=== PATIENT | female | born 1970 | race Caucasian/White ===

== ENCOUNTER 2017-02-03 18:39 | Emergency (ER) | payer BC, OTHER ==
[2017-02-03 18:50] VITALS: BP 117/57; PULSE 103; RESP 20; TEMP 97.8
--- NOTE | 2017-02-03 18:57 | ED ---
Upper Extremity HPI - General Chief Complaint: Extremity Injury, Upper Stated Complaint: RT ELBOW PAIN Time Seen by Provider: 02/03/17 18:50 Source: patient, RN notes reviewed Mode of arrival: ambulatory Limitations: no limitations - History of Present Illness Initial Comments: 46-year-old female presents emergency from she complaint right elbow pain. Patient states has been bothering for last week. 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 Patient states that she was grilling today and states that she knows increase in pain with movement. Patient denies any falls no trauma. Patient denies any paresthesias. Patient's had no prior injuries no fever no chills no redness. - Related Data Home Medications Medication Instructions Recorded Confirmed Insuln Asp Prt/Insulin Aspart 40 unit SQ AC-BID 12/11/14 03/17/16 [NovoLOG MIX 70-30 VIAL] Previous Rx's Medication Instructions Recorded Cyclobenzaprine [Flexeril] 10 mg PO TID PRN #12 tablet 03/17/16 Acetaminophen-Codeine 300-30mg 1 tab PO Q4H PRN #20 tablet 02/03/17 [Tylenol #3] methylPREDNISolone [Medrol Dose 4 mg PO DIRECTED #1 pack 02/03/17 Pack] Allergies Allergy/AdvReac Type Severity Reaction Status Date / Time Sulfa (Sulfonamide AdvReac Anaphylaxis Verified 02/03/17 18:50 Antibiotics) Review of Systems ROS Statement: Those systems with pertinent positive or pertinent negative responses have been documented in the HPI. ROS Other: All systems not noted in ROS Statement are negative. Past Medical History Past Medical History: Diabetes Mellitus Additional Past Medical History / Comment(s): Glaucoma, cataracts History of Any Multi-Drug Resistant Organisms: None Reported Additional Past Surgical History / Comment(s): nasal reduction, septoplasty, Past Psychological History: No Psychological Hx Reported Smoking Status: Current every day smoker Past Alcohol Use History: Occasional Past Drug Use History: None Reported General Exam Limitations: no limitations General appearance: alert, in no apparent distress Respiratory exam: Present: normal lung sounds bilaterally. Absent: respiratory distress, wheezes, rales, rhonchi, stridor Cardiovascular Exam: Present: regular rate, normal rhythm, normal heart sounds. Absent: systolic murmur, diastolic murmur, rubs, gallop, clicks Extremities exam: Present: other (Right elbow there is mild tenderness there is pain with wrist extension and pronation supination of the right forearm neurovascular intact no erythema no rashes) Course Vital Signs 02/03/17 18:49 Temperature 97.8 F Pulse Rate 103 H Respiratory 20 Rate Blood Pressure 117/57 O2 Sat by Pulse 97 Oximetry Medical Decision Making - Medical Decision Making 46-year-old female presented for right elbow pain. Patient has lateral epicondylitis. 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 Prescriptions: Acetaminophen-Codeine 300-30mg [Tylenol #3] 1 tab PO Q4H PRN #20 tablet PRN Reason: pain methylPREDNISolone [Medrol Dose Pack] 4 mg PO DIRECTED #1 pack Referrals: None,Stated [Primary Care Provider] - 1-2 days Time of Disposition: 18:57
== END 2017-02-03 19:07 | disposition home or self-care (01) ==
LOC: EC 18:39
DX: M77.11 Lateral epicondylitis, right elbow (principal); E11.9 Type 2 diabetes mellitus without complications; F17.200 Nicotine dependence, unspecified, uncomplicated; Z79.4 Long term (current) use of insulin; Z88.2 Allergy status to sulfonamides
CPT/HCPCS: 99283

== ENCOUNTER 2017-04-30 18:00 | Emergency (ER) | payer BC, OTHER ==
[2017-04-30 18:21] VITALS: BP 116/57; PULSE 95; RESP 18; TEMP 97.6
--- NOTE | 2017-04-30 18:54 | ED ---
Lower Extremity Injury HPI - General Chief Complaint: Extremity Injury, Lower Stated Complaint: left ankle injury Time Seen by Provider: 04/30/17 18:50 Source: patient, family, RN notes reviewed Mode of arrival: wheelchair Limitations: no limitations - History of Present Illness Initial Comments: 46-year-old female presents emergency Department chief complaint left ankle injury. Patient states she stepped over a curb and was going down hill when she rolled her ankle. Patient went of left lateral ankle pain. She's had no prior fractures she states she has sprained in the past. She denies any foot pain or any pain proximal to her left ankle. Patient has not taken anything for pain prior arrival she has not placed in a summer at this time. - Related Data Home Medications Medication Instructions Recorded Confirmed Insuln Asp Prt/Insulin Aspart 40 unit SQ AC-BID 12/11/14 03/17/16 [NovoLOG MIX 70-30 VIAL] Previous Rx's Medication Instructions Recorded Cyclobenzaprine [Flexeril] 10 mg PO TID PRN #12 tablet 03/17/16 Acetaminophen-Codeine 300-30mg 1 tab PO Q4H PRN #20 tablet 02/03/17 [Tylenol #3] methylPREDNISolone [Medrol Dose 4 mg PO DIRECTED #1 pack 02/03/17 Pack] Allergies Allergy/AdvReac Type Severity Reaction Status Date / Time Sulfa (Sulfonamide AdvReac Anaphylaxis Verified 04/30/17 18:21 Antibiotics) Review of Systems ROS Statement: Those systems with pertinent positive or pertinent negative responses have been documented in the HPI. ROS Other: All systems not noted in ROS Statement are negative. Past Medical History Past Medical History: Diabetes Mellitus Additional Past Medical History / Comment(s): Glaucoma, cataracts History of Any Multi-Drug Resistant Organisms: None Reported Additional Past Surgical History / Comment(s): nasal reduction, septoplasty, Past Psychological History: No Psychological Hx Reported Smoking Status: Current every day smoker Past Alcohol Use History: Occasional Past Drug Use History: None Reported General Exam Limitations: no limitations General appearance: alert, in no apparent distress Head exam: Present: atraumatic, normocephalic, normal inspection Neck exam: Present: normal inspection. Absent: tenderness, meningismus, lymphadenopathy Respiratory exam: Present: normal lung sounds bilaterally. Absent: respiratory distress, wheezes, rales, rhonchi, stridor Extremities exam: Present: other (left ankle there is moderate swelling to the lateral malleolus with moderate tenderness there is no laxity there is minimal medial malleolus tenderness and no foot tenderness with palpation pedal pulses equal bilaterally neurovascular intact) Skin exam: Present: warm, dry, intact, normal color. Absent: rash Course Vital Signs 04/30/17 18:18 Temperature 97.6 F Pulse Rate 95 Respiratory 18 Rate Blood Pressure 116/57 O2 Sat by Pulse 99 Oximetry Medical Decision Making - Medical Decision Making 46-year-old female presented emergency department for left ankle injury. Patient x-rays reveal no acute fracture. Patient has a left ankle sprain we discussed rest, ice and elevation and follow-up with orthopedics if no improvement. Disposition Clinical Impression: Left ankle sprain Disposition: HOME SELF-CARE Condition: Stable Instructions: Ankle Sprain (ED) Additional Instructions: Please return to the Emergency Department if symptoms worsen or any other concerns. Referrals: None,Stated [Primary Care Provider] - 1-2 days Otf Espinoza DO [Doctor of Osteopathic Medicine] - 1-2 days Time of Disposition: 19:17
--- NOTE | 2017-04-30 19:13 | XR ---
PROCEDURE: XR ankle complete LT - 3 views DATE AND TIME: 04/30/2017 7:02 PM REFERRING PHYSICIAN: Otf Jackson CLINICAL INDICATION: [facility], Pain TECHNIQUE: Department protocol. COMPARISON: None FINDINGS: There is soft tissue swelling laterally, but there is no fracture or malalignment. IMPRESSION: NEGATIVE FOR FRACTURE OR MALALIGNMENT.
== END 2017-04-30 19:25 | disposition home or self-care (01) ==
LOC: EC 18:00
DX: S93.402A Sprain of unspecified ligament of left ankle, initial encounter (principal); E11.9 Type 2 diabetes mellitus without complications; F17.200 Nicotine dependence, unspecified, uncomplicated; Z79.4 Long term (current) use of insulin; X50.9XXA Other and unspecified overexertion or strenuous movements or postures, initial encounter; Y92.828 Other wilderness area as the place of occurrence of the external cause; Y93.89 Activity, other specified
CPT/HCPCS: 99283

== ENCOUNTER 2017-05-16 14:04 | Emergency (ER) | payer OTHER ==
[2017-05-16 14:09] VITALS: BP 121/65; PULSE 84; RESP 18; TEMP 99.6
--- NOTE | 2017-05-16 14:35 | ED ---
Eye Problem HPI - General Chief complaint: Eye Problems Stated complaint: eye pain/swelling Time Seen by Provider: 05/16/17 14:13 Source: patient, RN notes reviewed, old records reviewed Mode of arrival: ambulatory Limitations: no limitations - History of Present Illness Initial comments: This is a 46 year old female with 2 days of left eyelid swelling and irritaiton. Patient reports no pain in the eye, denies any difficulty in vision. Patient has no pain with eyemovements. PAtient denies any fever or chills. She states that her right eye has no irritaiton. Denies any makeup use. - Related Data Home Medications Medication Instructions Recorded Confirmed Fluticasone Nasal [place] [Flonase 2 spr EA NOSTRIL DAILY PRN 05/16/17 05/16/17 Nasal [place]] Medroxyprogesterone Acetate 150 mg IM Q90D 05/16/17 05/16/17 [Depo-Provera] metFORMIN HCL [Glucophage] 500 mg PO BID 05/16/17 05/16/17 Previous Rx's Medication Instructions Recorded Erythromycin Ophth Oint [Romycin 1 applic LEFT EYE QID #1 tube 05/16/17 Ophth Oint] Allergies Allergy/AdvReac Type Severity Reaction Status Date / Time shellfish derived [Shellfish] Allergy Unknown Verified 05/16/17 14:30 venom-honey bee Allergy Unknown Verified 05/16/17 14:30 Sulfa (Sulfonamide AdvReac MARTHA Verified 05/16/17 14:30 Antibiotics) BLANCHE SYNDROME Review of Systems ROS Statement: Those systems with pertinent positive or pertinent negative responses have been documented in the HPI. ROS Other: All systems not noted in ROS Statement are negative. Past Medical History Past Medical History: Diabetes Mellitus Additional Past Medical History / Comment(s): Glaucoma, cataracts History of Any Multi-Drug Resistant Organisms: None Reported Additional Past Surgical History / Comment(s): nasal reduction, septoplasty, Past Psychological History: No Psychological Hx Reported Smoking Status: Current every day smoker Past Alcohol Use History: Occasional Past Drug Use History: None Reported General Exam - General Exam Comments Initial Comments: Well appearing 46 year old female, no distress. Limitations: no limitations General appearance: alert, in no apparent distress Head exam: Present: atraumatic, normocephalic, normal inspection Eye exam: Present: normal appearance, PERRL, EOMI, other (inflammation around left upper eyelash, consistent with blepharitis. ). Absent: scleral icterus, conjunctival injection, periorbital swelling ENT exam: Present: normal exam, mucous membranes moist Neck exam: Present: normal inspection. Absent: tenderness, meningismus, lymphadenopathy Respiratory exam: Present: normal lung sounds bilaterally. Absent: respiratory distress, wheezes, rales, rhonchi, stridor Cardiovascular Exam: Present: regular rate, normal rhythm, normal heart sounds. Absent: systolic murmur, diastolic murmur, rubs, gallop, clicks GI/Abdominal exam: Present: soft, normal bowel sounds. Absent: distended, tenderness, guarding, rebound, rigid Extremities exam: Present: normal inspection, full ROM, normal capillary refill. Absent: tenderness, pedal edema, joint swelling, calf tenderness Back exam: Present: normal inspection Neurological exam: Present: alert, oriented X3, CN II-XII intact Psychiatric exam: Present: normal affect, normal mood Skin exam: Present: warm, dry, intact, normal color. Absent: rash Course Vital Signs 05/16/17 14:06 Temperature 99.6 F Pulse Rate 84 Respiratory 18 Rate Blood Pressure 121/65 O2 Sat by Pulse 99 Oximetry Medical Decision Making - Medical Decision Making 46 year old female with 2 days of left upper eyelid inflammation. Eye has no conjunctivitis or drainage. No pain wiht EOM. Patient has what appears to be blepharitis. PAtient will be started on erythromycin eye ointment, and instructed to use a warm wash cloth to cleanse the eye lid. Discussed follow up with PCP. Discussed to discard all makeup and clean eyeglasses. Disposition Clinical Impression: Blepharitis of left eye Disposition: HOME SELF-CARE Condition: Good Instructions: Blepharitis (ED) Additional Instructions: Patient advised to clean the lid with warm soapy water. Apply warm compresses to the eye frequently. Apply the erythromycin ointment as well. Return to emergency department if any alarming signs or symptoms occur. Prescriptions: Erythromycin Ophth Oint [Romycin Ophth Oint] 1 applic LEFT EYE QID #1 tube Referrals: Keon Gupta MD [Primary Care Provider] - 1-2 days Time of Disposition: 14:34
== END 2017-05-16 14:41 | disposition home or self-care (01) ==
LOC: EC 14:04
DX: H01.004 Unspecified blepharitis left upper eyelid (principal); H40.9 Unspecified glaucoma; H26.9 Unspecified cataract; E11.9 Type 2 diabetes mellitus without complications; F17.200 Nicotine dependence, unspecified, uncomplicated; Z79.3 Long term (current) use of hormonal contraceptives; Z79.84 Long term (current) use of oral hypoglycemic drugs; Z88.2 Allergy status to sulfonamides; Z91.013 Allergy to seafood; Z91.030 Bee allergy status
CPT/HCPCS: 99283

== ENCOUNTER → 2018-02-04 | Outpatient (CLI) | payer BC ==
[2018-02-04 10:28] VITALS: BP 103/59; PULSE 76; TEMP 97.4; BMI 27.4
--- NOTE | 2018-02-04 11:07 | P.HPOB ---
History of Present Illness H&P Date: 02/04/18 Chief Complaint: The patient is here for her routine gynecologic exam and mammogram. This is a 47-year-old G2 PII with an LMP of 02/02/2018. The patient states it has been about 5 years since her last pelvic exam. She would like to be restarted on Depo-Provera which she had used for about 10 years until 2018. Her prescription ran out. Her last dose was in August 2017. She has been amenorrhea quartile on Depo-Provera. Her periods used to be very heavy and regular. She did start a menstrual period on 02/02/2018 and it is heavy. She is refusing a pelvic exam at this time because of her heavy menstrual flow. She has been experiencing some bilateral breast discomfort after she removes her bra at the end of the day. The breasts can be sore between the nipple and her axilla for about 1 hour after removing her bra. She denies any breast masses or leakage. She is otherwise without complaints. Review of Systems Weight has been stable. She denies respiratory, cardiac, or G.I. problems. Past Medical History Past Medical History: Diabetes Mellitus (Type II diabetes) Additional Past Medical History / Comment(s): Glaucoma, cataracts. Osteopenia. 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 She did have heavy menstrual periods prior to using Depo-Provera. History of Any Multi-Drug Resistant Organisms: None Reported Additional Past Surgical History / Comment(s): nasal reduction, septoplasty, Past Psychological History: No Psychological Hx Reported Smoking Status: Current every day smoker (1 pack per day) Past Alcohol Use History: Rare (About one every 6 months.) Past Drug Use History: None Reported Additional History: She has been since 2012 and works at [employer]. - Past Family History Mother Family Medical History: Myocardial Infarction ([place]) Sister(s) Family Medical History: Cancer (Breast cancer in half sister) Additional Family Medical History / Comment(s): Grandmother had breast cancer Medications and Allergies Home Medications Medication Instructions Recorded Confirmed Type Erythromycin Ophth Oint [Romycin 1 applic LEFT EYE QID #1 tube 05/16/17 Rx Ophth Oint] Fluticasone Nasal [place] [Flonase 2 spr EA NOSTRIL DAILY PRN 05/16/17 02/04/18 History Nasal [place]] Medroxyprogesterone Acetate 150 mg IM Q90D 05/16/17 02/04/18 History [Depo-Provera] metFORMIN HCL [Glucophage] 500 mg PO BID 05/16/17 02/04/18 History Allergies Allergy/AdvReac Type Severity Reaction Status Date / Time shellfish derived [Shellfish] Allergy Unknown Verified 02/04/18 10:25 venom-honey bee Allergy Unknown Verified 02/04/18 10:25 Sulfa (Sulfonamide AdvReac MATRHA Verified 02/04/18 10:25 Antibiotics) BLANCHE SYNDROME Exam - Vital Signs Vital signs: Vital Signs Temp Pulse BP 02/04/18 10:25 97.4 F L 76 103/59 Intake and Output 02/03/18 02/04/18 02/04/18 22:59 06:59 14:59 Other: Weight 72.575 kg Height 5'4", BMI 27.5. This is a well-developed well-nourished white female who is alert and oriented times 3 in no acute distress. HEENT: Within normal limits. NECK: Supple without mass or thyromegaly. CHEST AND LUNGS: Clear to auscultation. HEART: Regular rate and rhythm. BREASTS: Are without mass or discharge. Breasts are nontender. AXILLARY EXAM: Negative for adenopathy. BACK: Negative for CVA tenderness. ABDOMEN: Soft, nontender, without palpable masses. PELVIC EXAM: was refused by the patient because of her menstrual flow at this time. She would like to return for her pelvic exam after her menses is completed. RECTAL EXAM: deferred EXTREMITIES: Nontender. IMPRESSION: 1. 47-year-old premenopausal female who has used Depo-Provera for approximately 10 years for control and for her history of hypermenorrhea. 2. Pelvic exam was deferred since the patient is refusing pelvic exam while on her menstrual period. 3. History of osteopenia PLAN: 1. Pap smear and pelvic exam have been deferred. She will make an appointment in the near future for this after her menstrual flow is completed. 2. Mammogram will be done today. 3. We have just discussed various options for control including barrier methods, hormonal methods, the IUD, and sterilization. We also discussed risks of Depo-Provera including weakening of bone strength over time. The patient would like to continue on Depo-Provera at this time. I have recommended having a trial off of Depo-Provera within the next 2 years. A prescription for Depo- Provera 150 mg IM Q3 months will be sent electronically to [facility]. She states her gives her her injections and he is qualified to do this. 4. I have recommended that she tried to quit smoking. I've given are many reasons why this is important. 5. She will make an appointment for completion of her gynecologic exam and Pap smear. She will also returning one year and PRN.
--- NOTE | 2018-02-10 09:54 | MM ---
Reason for exam: screening (asymptomatic). Last mammogram was performed 5 years and 9 months ago. History: Family history of breast cancer in grandmother at age 49 and breast cancer in sister at age 32. Physical Findings: A clinical breast exam by your physician is recommended on an annual basis and results should be correlated with mammographic findings. MG Screening Mammo w CAD Bilateral CC and MLO view(s) were taken. Prior study comparison: May 17, 2012, mammogram, performed at [facility]. There are scattered fibroglandular densities. Benign appearing bilateral calcifications. No suspicious abnormality. No significant changes when compared with prior studies. ASSESSMENT: Benign, BI-RAD 2 RECOMMENDATION: Routine screening mammogram of both breasts in 1 year.
== END | disposition home or self-care (01) ==
LOC: WWCWWP 09:38
PROVIDERS: ATTEND Obstetrics & Gynecology
DX: Z12.31 Encounter for screening mammogram for malignant neoplasm of breast (principal)
CPT/HCPCS: 77067

== ENCOUNTER → 2022-06-25 | Outpatient (CLI) | payer OTHER ==
--- NOTE | 2022-06-26 08:21 | XR ---
Left hip HISTORY: Pain 2 views of left hip Degenerative disc changes are noted incidentally in the lumbar spine. There are phleboliths O calcifi cations noted within the pelvis. Bone mineralization, joint spaces and alignment are maintained. No f racture or dislocation. IMPRESSION: Normal left hip.
--- NOTE | 2022-06-26 08:22 | XR ---
Lumbar spine HISTORY: Low back pain 3 views of lumbar spine, no comparisons There is spondylosis present with loss of disc height and vacuum disc phenomenon, loss of disc height at L4-5 and L5-S1. Vertebral bodies show decreased mineralization. Lumbar vertebral bodies show pres erved height. Sclerosis of the posterior elements is consistent with facet arthropathy. Atherosclerot ic vascular calcifications are present in the aorta iliac distribution. IMPRESSION: Degenerative disc disease and facet arthropathy. Lumbar MRI may be of benefit.
--- NOTE | 2022-06-26 08:26 | XR ---
Sacrum and coccyx HISTORY: Low back pain 3 views of the sacrum and coccyx Bone mineralization appears reduced. Phleboliths are noted incidentally in the pelvis. Sacroiliac davidson nts are intact. No evident fracture. Degenerative disc change noted at the lower lumbar spine. Coccyx is deviated toward the right. IMPRESSION: Degenerative disc disease lumbosacral spine. Additional nonspecific findings above
== END | disposition home or self-care (01) ==
LOC: RADXRMAIN 18:04
PROVIDERS: ATTEND Family Medicine
DX: M51.37 Other intervertebral disc degeneration, lumbosacral region (principal)
CPT/HCPCS: 72100; 72220; 73502

== ENCOUNTER → 2022-08-03 | Outpatient (CLI) | payer OTHER ==
--- NOTE | 2022-08-04 03:52 | MR ---
EXAMINATION TYPE: MR lumbar spine wo con DATE OF EXAM: 08/03/2022 COMPARISON: None HISTORY: Lower back pain, BLE radiculopathy x 2 months, no trauma. Multiplanar multiecho imaging of the lumbar spine with no contrast. The lumbar vertebrae have normal alignment. There is mild degenerative disc narrowing at L4-5 and L5- S1. There is posterior disc bulging and mild herniation from L3 to S1. There is developmentally adequ ate spinal canal. No significant narrowing of the spinal canal. No lumbar paraspinal mass. No mikal nba fracture. There is mild increased signal on both sides of the L4-5 disc on the STIR images that is likely reactive signal changes and mild edema. There is very slight increased fluid signal in the L4-5 disc but less than I would expect for discitis. The lumbar neural foramina are fairly well maintained. IMPRESSION: Mild multilevel posterior disc bulging and herniation from L3 to S1. No spinal stenosis. Mild reactiv e changes at L4-5 disc.
== END | disposition home or self-care (01) ==
LOC: RADMRIMAIN 19:23
PROVIDERS: ATTEND Family Medicine
DX: M51.17 Intervertebral disc disorders with radiculopathy, lumbosacral region (principal)
CPT/HCPCS: 72148

== ENCOUNTER → 2023-04-15 | Outpatient (CLI) | payer OTHER ==
--- NOTE | 2023-04-15 09:03 | US ---
EXAMINATION TYPE: US abdomen complete DATE OF EXAM: 04/15/2023 COMPARISON: NONE CLINICAL INDICATION: Female, 52 years old with history of R10.11; ongoing abd pain for months TECHNIQUE: Multiple sonographic images of the abdomen are obtained. FINDINGS: EXAM MEASUREMENTS: Liver Length: 15.9 cm Gallbladder Wall: 0.1 cm CBD: 0.5 cm Spleen: 12.1 cm Right Kidney: 10.4 x 5.0 x 4.9 cm Left Kidney: 10.5 x 4.5 x 5.3 cm Pancreas: wnl Liver: Mildly increased echotexture. Gallbladder: 0.2 x 0.4cm possible polyp on posterior wall Evidence for sonographic Bradley's sign: no CBD: wnl Spleen: wnl Right Kidney: wnl Left Kidney: wnl Upper IVC: wnl Abd Aorta: wnl IMPRESSION: 1. No evidence for acute process. 2. 4 mm nonshadowing gallstone versus polyp. Consider follow-up in 6 months to ensure stability. 3. Hepatic steatosis.
== END | disposition home or self-care (01) ==
LOC: RADUSWWP 08:21
PROVIDERS: ATTEND Family Medicine
DX: K76.0 Fatty (change of) liver, not elsewhere classified (principal)
CPT/HCPCS: 76700

== ENCOUNTER → 2023-10-23 | Outpatient (CLI) | payer OTHER ==
--- NOTE | 2023-10-23 16:38 | XR ---
EXAMINATION TYPE: XR shoulder complete LT DATE OF EXAM: 10/23/2023 4:27 PM CLINICAL INDICATION:Female, 52 years old with history of LEFT SHOULDER PAIN; [facility] COMPARISON: None TECHNIQUE: XR shoulder complete LT; examined in AP, internally rotated and scapular Y projections. FINDINGS: No evidence of acute osseous pathology, joint dislocation, or soft tissue swelling. The remaining po rtions of the visualized chest are unremarkable. Mild degeneration changes of the left acromion and distal clavicle. IMPRESSION: 1. No acute osseous pathology. 2. Mild AC joint osteoarthrosis.
== END | disposition home or self-care (01) ==
LOC: RADXRMAIN 16:04
PROVIDERS: ATTEND Family Medicine
DX: M19.012 Primary osteoarthritis, left shoulder (principal)

== ENCOUNTER → 2024-10-12 | Outpatient (CLI) | payer OTHER ==
--- NOTE | 2024-10-12 14:37 | MM ---
Reason for Exam: Screening (asymptomatic). Last mammogram was performed 6 year(s) and 9 month(s) ago. Patient History: Menarche at age 11. First Full-Term at age 20. Patient has history of breast feeding. Patient used Hormonal Contraceptives for 30 years. Maternal grandmother had breast cancer, age 49. Sister had breast cancer, age 32. Risk Values: Carol 5 year model risk: 2.2%. NCI Lifetime model risk: 15.4%. Prior Study Comparison: 05/17/2012 Screening Mammogram, [facility]. 02/04/2018 Bilateral Screening Mammogram, [facility]. Tissue Density: There are scattered areas of fibroglandular density. Findings: Analyzed By CAD. A few tiny benign appearing calcifications in the left breast are redemonstrated. There is no suspicious group of microcalcifications or new suspicious mass in either breast. Overall Assessment: Benign, BI-RAD 2 Management: Screening Mammogram of both breasts in 1 year. . Patient should continue monthly self-breast exams. A clinical breast exam by your physician is recommended on an annual basis. This exam should not preclude additional follow-up of suspicious palpable abnormalities. Note on Carol scores and lifetime risk: 1. A Carol score greater than 3% is considered moderate risk. If this is the case, consider specialist referral to assess eligibility for a risk reducing agent. 2. If overall lifetime risk for the development of breast cancer is 20% or higher, the patient may qualify for future screening with alternating mammogram and breast MRI. [facility], , 10/12/2024 2:34 PM. Electronically signed and approved by: Martin Bennett M.D.
== END | disposition home or self-care (01) ==
LOC: RADMAMWWP 13:52
DX: Z12.31 Encounter for screening mammogram for malignant neoplasm of breast (principal); R92.323 Mammographic fibroglandular density, bilateral breasts; Z80.3 Family history of malignant neoplasm of breast
CPT/HCPCS: 77063; 77067